=== PATIENT | female | born 1970 | race Hispanic/Latino ===

== ENCOUNTER 2018-10-14 08:13 | Emergency (ER) | payer OTHER ==
[2018-10-14 09:21] LABS: Urine Blood NEGATIVE (NEG); Urine Glucose NEGATIVE (NEG); Urine Protein 2+ (NEG); Urine Specific Gravity >1.030 (1.005-1.030); Urine pH 5.5 (5.0-7.0)
[2018-10-14 09:22] LABS: Protime INR 1.15
[2018-10-14 09:23] LABS: Absolute Monocytes 0.4 K/uL (0.1-1.3); Absolute Neutrophil 7.2 K/uL (1.8-8.0); Basophils % 0.7 % (0-1.3); Eosinophils % 2.1 % (0-4.4); Hematocrit 38.4 % (36.0-45.0); Lymphocytes % 20.5 % (15.3-44.8); MPV 7.4 fL (7.6-11.3); Monocytes % 4.3 % (3.3-12.3); RBC Red Blood Cell Count 4.76 M/uL (3.86-4.86)
[2018-10-14] MEDS ORDERED: ONDANSETRON 4 MG/2 ML VIAL ONE (09:34)
[2018-10-14] MEDS ORDERED: NA CHLORIDE 0.9% 1,000 ML ONE ×2 (09:34→14:23)
[2018-10-14] MEDS ORDERED: MORPHINE 4 MG/ML SYR ONE (09:34)
[2018-10-14 09:50] LABS: ALT/SGPT 37 U/L (12-78); AST/SGOT 22 U/L (15-37); Albumin 3.8 g/dL (3.4-5.0); Alkaline Phosphatase 84 U/L (45-117); BUN Blood Urea Nitrogen 12 mg/dL (7-18); Bicarbonate 27 mmol/L (21-32); Bilirubin Direct 0.1 mg/dL (0-0.2); Bilirubin Total 0.5 mg/dL (0.2-1.0); Glucose Level 128 mg/dL (74-106); Lipase 82 U/L (73-393); Magnesium 2.2 mg/dL (1.8-2.4); NT PRO-BNP 113 pg/mL (<125); Potassium 4.2 mmol/L (3.5-5.1); Protein, Total 8.1 g/dL (6.4-8.2); Sodium Level 137 mmol/L (136-145); Troponin (Emerg Dept Use Only) < 0.02 ng/mL (0.0-0.045)
--- NOTE | 2018-10-14 10:28 | RAD REPORT ---
EXAM DESCRIPTION: RAD - Chest Single View - 10/14/2018 10:02 am CLINICAL HISTORY: Cough COMPARISON: None. TECHNIQUE: AP portable chest image was obtained 0917 hours . FINDINGS: Lungs are clear. Heart and vasculature are normal. No measurable pleural effusion and no p neumothorax. No acute bony abnormality seen. No acute aortic findings suspected. IMPRESSION: No acute cardiopulmonary process.
[2018-10-14] MEDS ORDERED: HYDROMORPHONE HCL 0.5 MG/0.5 ML INJ ONE ×2 (10:44→14:55)
--- NOTE | 2018-10-14 10:45 | RAD REPORT ---
EXAM DESCRIPTION: CT - Head Brain Wo Cont - 10/14/2018 10:19 am CLINICAL HISTORY: Headache COMPARISON: None. TECHNIQUE: Computed axial tomography of the head was obtained. IV contrast was not requested. All CT scans are performed using dose optimization technique as appropriate and may include automated exposure control or mA/KV adjustment according to patient size. FINDINGS: An intracranial bleed is not seen . The ventricles are normal in caliber. No extra-axial fluid collection is noted. 17 millimeter left posterior scalp lesion near midline Fluid within the sinuses/ mastoids is not seen. Mild chronic ethmoid sinusitis is present IMPRESSION: No acute intracranial abnormality is seen. If patient's symptoms persist MRI of the bra in would be recommended. Mild chronic ethmoid sinusitis is present 17 millimeter left posterior scalp lesion. Follow-up recommended
--- NOTE | 2018-10-14 10:52 | RAD REPORT ---
EXAM DESCRIPTION: CTHead angio10/14/2018 10:20 am CLINICAL HISTORY: Syncope and headache COMPARISON: None TECHNIQUE: CT angiogram of the head was obtained. 3D MIPS reconstruction performed. All CT scans are performed using dose optimization technique as appropriate and may include automated exposure control or mA/KV adjustment according to patient size. FINDINGS: The basilar, internal carotid, anterior cerebral, middle cerebral and posterior cerebral a rteries are normal caliber. An aneurysm is not seen. Right A1 segment is hypoplastic which is a normal variant A significant stenosis is not noted. Coarse calcification is seen within the distal right vertebral a rtery IMPRESSION: No significant abnormalities displayed
[2018-10-14] MEDS ORDERED: CEFTRIAXONE/SWI 1gm 1 GM/10 ML SYR ONE ×2 (11:34→14:09)
[2018-10-14] MEDS ORDERED: KETOROLAC 30 MG/ML INJ ONE (11:34)
[2018-10-14] MEDS ORDERED: LIDOCAINE 1% MPF 5 ML VIAL ONE (11:47)
[2018-10-14 13:51] LABS: Appearance CLEAR (CLEAR); Body Fluid Source CSF; Color of fluid Colorless (COLORLESS)
[2018-10-14 13:52] LABS: Body Fluid WBC 984 /mm^3
[2018-10-14 13:56] LABS: Appearance CLEAR (CLEAR); Body Fluid Source CSF; Body Fluid WBC 1204 /mm^3; Color of fluid Colorless (COLORLESS)
--- NOTE | 2018-10-14 14:00 | ER ---
Nurse's Notes [facility] Name: Violette Matute Age: 47 yrs Sex: Female : 1970 Arrival Date: 10/14/2018 Time: 08:18 Bed 17 Private MD: out of town, doctor Diagnosis: Meningitis, unspecified;Headache Presentation: 10/14 08:44 Acuity: ROSELYN 3 sv 08:45 Presenting complaint: Patient states: headache that started yesterday at 0700, reports em nausea and photophobia, denies vomiting or dizziness, described as constant and throbbing. Transition of care: patient was not received from another setting of care. Onset of symptoms was October 13, 2018. Risk Assessment: Do you want to hurt yourself or someone else? Patient reports no desire to harm self or others. Initial Sepsis Screen: Does the patient meet any 2 criteria? No. Patient's initial sepsis screen is negative. Does the patient have a suspected source of infection? No. Patient's initial sepsis screen is negative. Care prior to arrival: None. 08:45 Method Of Arrival: Ambulatory em Triage Assessment: 08:48 Headache History: Denies prior headaches. General: Appears in no apparent distress. em uncomfortable, Behavior is calm, cooperative. Pain: Pain currently is 10 out of 10 on a pain scale. Pain began 1 day ago. Also complains of photophobia. Neuro: Level of Consciousness is awake, alert, obeys commands, Oriented to person, place, time, situation. Historical: - Allergies: 08:48 No Known Allergies; em - Home Meds: 08:48 metformin 500 mg Oral tab [Active]; losartan 50 mg oral tab [Active]; simvastatin 10 mg em Oral tab [Active]; - PMHx: 08:48 Hyperlipidemia; Hypertension; Diabetes - NIDDM; Asthma; em - PSHx: 08:48 Hernia repair; ; em - Immunization history:: Adult Immunizations up to date. - Social history:: Smoking status: Patient/guardian denies using tobacco. - Ebola Screening: : Patient negative for fever greater than or equal to 101.5 degrees Fahrenheit, and additional compatible Ebola Virus Disease symptoms Patient denies exposure to infectious person Patient denies travel to an Ebola-affected area in the 21 days before illness onset No symptoms or risks identified at this time. - Family history:: not pertinent. Screenin:44 Abuse screen: Denies threats or abuse. Nutritional screening: No deficits noted. em Tuberculosis screening: No symptoms or risk factors identified. Fall Risk None identified. Assessment: 08:48 General: Appears in no apparent distress. uncomfortable, Behavior is calm, cooperative, em Denies fever. Pain: Complains of pain in left advent and right advent and forehead Pain currently is 10 out of 10 on a pain scale. Pain began 1 day ago. Neuro: Level of Consciousness is awake, alert, obeys commands, Oriented to person, place, time, situation, [place] are equal bilaterally Moves all extremities. Gait is steady, Speech is normal, Facial symmetry appears normal, Reports headache photophobia neck stiffness . Denies weakness dizziness. Cardiovascular: Capillary refill < 3 seconds Patient's skin is warm and dry. Respiratory: Airway is patent Respiratory effort is even, unlabored, Respiratory pattern is regular, symmetrical. GI: Abdomen is obese, Reports nausea, Patient currently denies vomiting. Derm: Skin is intact, is healthy with good turgor, Skin is pink, warm \T\ dry. Musculoskeletal: Range of motion: intact in all extremities. 08:48 Reassessment: I agree with assessment completed by Suhail Louis LVN . aa5 10:10 Reassessment: Patient appears in no apparent distress at this time. Patient and/or em family updated on plan of care and expected duration. Pain level reassessed. Patient is alert, oriented x 3, equal unlabored respirations, skin warm/dry/pink. reports pain is 8/10. 10:35 Reassessment: Patient appears in no apparent distress at this time. Patient and/or em family updated on plan of care and expected duration. Pain level reassessed. Patient is alert, oriented x 3, equal unlabored respirations, skin warm/dry/pink. reports pain is 9/10, provider notified, new medication orders received. 11:10 Reassessment: Patient appears in no apparent distress at this time. Patient and/or em family updated on plan of care and expected duration. Pain level reassessed. Patient is alert, oriented x 3, equal unlabored respirations, skin warm/dry/pink. rates pain 5/10. 12:40 Reassessment: Patient appears in no apparent distress at this time. Patient and/or em family updated on plan of care and expected duration. Pain level reassessed. Patient is alert, oriented x 3, equal unlabored respirations, skin warm/dry/pink. rates pain 5/10 Patient states feeling better. 13:26 Reassessment: Patient appears in no apparent distress at this time. Patient and/or em family updated on plan of care and expected duration. Pain level reassessed. Patient is alert, oriented x 3, equal unlabored respirations, skin warm/dry/pink. pending CSF results. 14:30 Reassessment: Patient appears in no apparent distress at this time. Patient and/or em family updated on plan of care and expected duration. Pain level reassessed. Patient is alert, oriented x 3, equal unlabored respirations, skin warm/dry/pink. reports pain and low grade fever, provider notified, new medication orders received. 15:30 Reassessment: report called to FLACO Ash at [facility]. em 15:55 Reassessment: report given to EMS. em Vital Signs: 08:48 BP 154 / 92; Pulse 80; Resp 18; Temp 98.7(O); Pulse Ox 100% on R/A; Pain 10/10; em 10:00 BP 142 / 89; Pulse 72; Pulse Ox 99% on R/A; em 11:00 BP 133 / 76; Pulse 72; Resp 18; Pulse Ox 99% on R/A; Pain 5/10; em 12:00 BP 133 / 75; Pulse 66; Resp 18; Pulse Ox 99% on R/A; em 13:00 BP 118 / 70; Pulse 67; Resp 15; Pulse Ox 100% on R/A; Pain 5/10; em 14:40 Temp 99.8; ms 14:40 BP 130 / 64; Pulse 69; Resp 18; Pulse Ox 99% on R/A; Pain 5/10; em 15:30 BP 139 / 88; Pulse 69; Resp 18; Pulse Ox 99% on R/A; Pain 5/10; em ED Course: 08:18 Patient arrived in ED. mr 08:18 out of town, doctor is Private Physician. mr 08:22 Keo Hernandez MD is Attending Physician. armando 08:44 Patient has correct armband on for positive identification. Placed in gown. Bed in low em position. Call light in reach. Side rails up X2. Adult w/ patient. Pulse ox on. NIBP on. 08:45 Triage completed. sv 08:45 Suhail Louis LVN is Primary Nurse. em 08:48 Arm band placed on. em 09:07 Radiology exam delayed due to lab results not completed at this time. (BUN/Creatinine). vr 09:11 Initial lab(s) drawn, by me, sent to lab. Urine collected: clean catch specimen, clear. ms Inserted saline lock: 20 gauge in left antecubital area, using aseptic technique. Blood collected. 09:22 EKG done, by ED staff, reviewed by Keo Hernandez MD. at1 09:59 X-ray completed. Portable x-ray completed in exam room. Patient tolerated procedure sw well. 10:02 XRAY Chest (1 view) In Process Unspecified. EDMS 10:20 CT Head Brain wo Cont In Process Unspecified. EDMS 10:20 CT Head Angio In Process Unspecified. EDMS 12:35 Assist provider with lumbar puncture: Set up LP tray. Performed by Keo Hernandez MD em CSF is clear. Puncture site dressed with band aid, Procedure was successful. Patient tolerated well. 13:[address] Hernandez with Sylvia Hamlin at the [facility] transfer eb center. 14:[address] Ocampo the neurologist fraud prevention analyst at [facility] with Dr. Hernandez for eb patient transfer consultation. 14:43 administrative approval given by Sylvia Hamlin RN/ pt latrice to [address] [place] [address] bed 15/ Dr. lionel Nguyen has accepted the patient in transfer/ report to be called to [phone]. 16:11 Patient transferred, IV remains in place. em Administered Medications: 09:40 Drug: NS 0.9% 1000 ml Route: IV; Rate: 125 ml/hr; Site: left antecubital; aa5 16:14 Follow up: IV Status: Infusion continued upon transfer; IV Intake: 200ml em 09:40 Drug: morphine 4 mg Route: IVP; Site: left antecubital; aa5 10:20 Follow up: Response: No adverse reaction; Pain is decreased em 09:40 Drug: Zofran 4 mg Route: IVP; Site: left antecubital; aa5 10:21 Follow up: Response: No adverse reaction em 10:40 Drug: Dilaudid 0.5 mg Route: IVP; Site: left antecubital; aa5 11:10 Follow up: Response: No adverse reaction; Pain is decreased em 11:40 Drug: Rocephin - (cefTRIAXone) 1 grams Route: IVPB; Infused Over: 30 mins; Site: left aa5 antecubital; 12:03 Follow up: Response: No adverse reaction; IV Status: Completed infusion; IV Intake: 10mlem 11:40 Drug: TORadol 30 mg Route: IVP; Site: left antecubital; aa5 12:40 Follow up: Response: No adverse reaction; Pain is unchanged, physician notified em 12:50 Drug: NS 0.9% 1000 ml Route: IV; Rate: 1 bolus; Site: left antecubital; em 14:23 Follow up: IV Status: Completed infusion; IV Intake: 1000ml em 14:40 Drug: Rocephin - (cefTRIAXone) 1 grams Route: IVPB; Infused Over: 30 mins; Site: left aa5 antecubital; 15:30 Follow up: Response: No adverse reaction; IV Status: Completed infusion; IV Intake: 10mlem 14:49 Drug: Tylenol 1000 mg Route: PO; em 16:08 Follow up: Response: No adverse reaction em 14:50 Drug: Dilaudid 0.5 mg Route: IVP; Site: left antecubital; em 16:07 Follow up: Response: No adverse reaction em 14:55 Drug: vancoMYCIN 1 grams Route: IVPB; Infused Over: 2 hrs; Site: left antecubital; em 16:07 Follow up: Response: No adverse reaction; IV Status: Infusion continued upon transfer; em IV Intake: 50ml Intake: 12:03 IV: 10ml; Total: 10ml. em 14:23 IV: 1000ml; Total: 1010ml. em 15:30 IV: 10ml; Total: 1020ml. em 16:07 IV: 50ml; Total: 1070ml. em 16:14 IV: 200ml; Total: 1270ml. em Outcome: 13:59 ER care complete, transfer ordered by . [facility] 16:12 Transferred by [facility] to [facility], Transfer form completed. em X-rays sent w/ patient. 16:12 Condition: good 16:12 Instructed on the need for transfer, Demonstrated understanding of instructions. 16:14 Patient left the ED. em Signatures: Dispatcher [employer] Brigitte Kearns, Keo Block RN, MD MD cha Rivera, Nia mr Louis, Suhail, FIREWORKS ASSEMBLY SUPERVISOR FIREWORKS ASSEMBLY SUPERVISOR em Kranthi, Eliza ms Maikol, Hortencia, FLACO SAM aa5 Felecia Arechiga Amanda, operations specialist EKG Tat1 Becky Levy Elizabeth eb Corrections: (The following items were deleted from the chart) 16:04 08:48 Neuro: Level of Consciousness is awake, alert, obeys commands, Oriented to em person, place, time, situation, [place] are equal bilaterally Moves all extremities. Gait is steady, Speech is normal, Facial symmetry appears normal, Reports headache photophobia Denies weakness dizziness, em
--- NOTE | 2018-10-14 14:01 | EDPHYS ---
Physician Documentation [facility] Name: Violette Matute Age: 47 yrs Sex: Female : 1970 Arrival Date: 10/14/2018 Time: 08:18 Bed 17 Private MD: out of town, doctor ED Physician Keo Hernandez HPI: 10/14 08:58 This 47 yrs old Female presents to ER via Ambulatory with complaints of armando Headache. 08:58 The patient complains of pain to the forehead, right rastafari and left rastafari. The armando patient describes the headache as a pressure. Onset: The symptoms/episode began/occurred 24 hour(s) ago. Associated signs and symptoms: The patient has no apparent associated signs or symptoms. Severity of symptoms: At its worst the pain was moderate. Headache History: Denies prior headaches. The patient has not experienced similar symptoms in the past. Historical: - Allergies: 08:48 No Known Allergies; em - Home Meds: 08:48 metformin 500 mg Oral tab [Active]; losartan 50 mg oral tab [Active]; simvastatin 10 mg em Oral tab [Active]; - PMHx: 08:48 Hyperlipidemia; Hypertension; Diabetes - NIDDM; Asthma; em - PSHx: 08:48 Hernia repair; ; em - Immunization history:: Adult Immunizations up to date. - Social history:: Smoking status: Patient/guardian denies using tobacco. - Ebola Screening: : Patient negative for fever greater than or equal to 101.5 degrees Fahrenheit, and additional compatible Ebola Virus Disease symptoms Patient denies exposure to infectious person Patient denies travel to an Ebola-affected area in the 21 days before illness onset No symptoms or risks identified at this time. - Family history:: not pertinent. ROS: 08:58 Constitutional: Negative for fever, chills, and weight loss, Eyes: Negative for injury, armando pain, redness, and discharge, ENT: Negative for injury, pain, and discharge, Neck: Negative for injury, pain, and swelling, Cardiovascular: Negative for chest pain, palpitations, and edema, Respiratory: Negative for shortness of breath, cough, wheezing, and pleuritic chest pain, Abdomen/GI: Negative for abdominal pain, nausea, vomiting, diarrhea, and constipation, Back: Negative for injury and pain, : Negative for injury, bleeding, discharge, and swelling, MS/Extremity: Negative for injury and deformity, Skin: Negative for injury, rash, and discoloration, Psych: Negative for depression, anxiety, suicide ideation, homicidal ideation, and hallucinations, Allergy/Immunology: Negative for hives, rash, and allergies, Endocrine: Negative for neck swelling, polydipsia, polyuria, polyphagia, and marked weight changes, Hematologic/Lymphatic: Negative for swollen nodes, abnormal bleeding, and unusual bruising. 08:58 Neuro: Positive for headache. Exam: 08:58 Constitutional: This is a well developed, well nourished patient who is awake, alert, armando and in no acute distress. Head/Face: Normocephalic, atraumatic. Eyes: Pupils equal round and reactive to light, extra-ocular motions intact. Lids and lashes normal. Conjunctiva and sclera are non-icteric and not injected. Cornea within normal limits. Periorbital areas with no swelling, redness, or edema. ENT: Nares patent. No nasal discharge, no septal abnormalities noted. Tympanic membranes are normal and external auditory canals are clear. Oropharynx with no redness, swelling, or masses, exudates, or evidence of obstruction, uvula midline. Mucous membranes moist. Neck: Trachea midline, no thyromegaly or masses palpated, and no cervical lymphadenopathy. Supple, full range of motion without nuchal rigidity, or vertebral point tenderness. No Meningismus. Chest/axilla: Normal chest wall appearance and motion. Nontender with no deformity. No lesions are appreciated. Cardiovascular: Regular rate and rhythm with a normal S1 and S2. No gallops, murmurs, or rubs. Normal PMI, no JVD. No pulse deficits. Respiratory: Lungs have equal breath sounds bilaterally, clear to auscultation and percussion. No rales, rhonchi or wheezes noted. No increased work of breathing, no retractions or nasal flaring. Abdomen/GI: Soft, non-tender, with normal bowel sounds. No distension or tympany. No guarding or rebound. No evidence of tenderness throughout. Back: No spinal tenderness. No costovertebral tenderness. Full range of motion. Female : Normal external genitalia. Skin: Warm, dry with normal turgor. Normal color with no rashes, no lesions, and no evidence of cellulitis. MS/ Extremity: Pulses equal, no cyanosis. Neurovascular intact. Full, normal range of motion. Psych: Awake, alert, with orientation to person, place and time. Behavior, mood, and affect are within normal limits. 08:58 Neuro: Orientation: is normal, appropriate for stated age, no acute changes, Mentation: is normal, appropriate for stated age, no acute changes, Memory: is normal, appropriate for stated age, no acute changes, Cranial nerves: grossly normal, is grossly normal based on the patient's age, no acute changes, Cerebellar function: is grossly normal, is grossly normal based on the patient's age, no acute changes, Gait: not applicable Vital Signs: 08:48 BP 154 / 92; Pulse 80; Resp 18; Temp 98.7(O); Pulse Ox 100% on R/A; Pain 10/10; em 10:00 BP 142 / 89; Pulse 72; Pulse Ox 99% on R/A; em 11:00 BP 133 / 76; Pulse 72; Resp 18; Pulse Ox 99% on R/A; Pain 5/10; em 12:00 BP 133 / 75; Pulse 66; Resp 18; Pulse Ox 99% on R/A; em 13:00 BP 118 / 70; Pulse 67; Resp 15; Pulse Ox 100% on R/A; Pain 5/10; em 14:40 Temp 99.8; ms 14:40 BP 130 / 64; Pulse 69; Resp 18; Pulse Ox 99% on R/A; Pain 5/10; em 15:30 BP 139 / 88; Pulse 69; Resp 18; Pulse Ox 99% on R/A; Pain 5/10; em MDM: 08:23 Patient medically screened. [facility] 09:19 Data reviewed: vital signs, nurses notes, lab test result(s), EKG, radiologic studies, [facility] CT scan, plain films. 10/14 08:37 Order name: Urine Dipstick--Ancillary (enter results); Complete Time: 10:10 10/14 08:37 Order name: Urine --Ancillary (enter results); Complete Time: 10:10 10/14 08:56 Order name: Basic Metabolic Panel; Complete Time: 10:10 [facility] 10/14 08:56 Order name: CBC with Diff; Complete Time: 10:10 [facility] 10/14 08:56 Order name: LFT's; Complete Time: 10:10 [facility] 10/14 08:56 Order name: Magnesium; Complete Time: 10:10 [facility] 10/14 08:56 Order name: NT PRO-BNP; Complete Time: 10:10 [facility] 10/14 08:56 Order name: PT-INR; Complete Time: 10:10 [facility] 10/14 08:56 Order name: Troponin (emerg Dept Use Only); Complete Time: 10:10 [facility] 10/14 08:56 Order name: Lipase; Complete Time: 10:10 [facility] 10/14 08:56 Order name: Urine Culture [facility] 10/14 13:13 Order name: Spinal Fluid Profile; Complete Time: 14:21 [facility] 10/14 13:28 Order name: Body Fluid Cell Count; Complete Time: 14:21 [facility] 10/14 13:28 Order name: CSF Culture [facility] 10/14 08:56 Order name: XRAY Chest (1 view); Complete Time: 11:06 [facility] 10/14 08:56 Order name: EKG; Complete Time: 08:57 [facility] 10/14 08:56 Order name: CT Head Brain wo Cont; Complete Time: 11:06 [facility] 10/14 08:56 Order name: CT Head Angio; Complete Time: 11:06 [facility] 10/14 13:28 Order name: CSF Bacterial Antigens (Tube 1 [facility] 10/14 08:56 Order name: Cardiac monitoring; Complete Time: 09:11 [facility] 10/14 08:56 Order name: EKG - Nurse/Tech; Complete Time: 09:11 [facility] 10/14 08:56 Order name: IV Saline Lock; Complete Time: 09:11 [facility] 10/14 08:56 Order name: Labs collected and sent; Complete Time: 09:11 [facility] 10/14 08:56 Order name: O2 Per Protocol; Complete Time: 09:11 [facility] 10/14 08:56 Order name: O2 Sat Monitoring; Complete Time: 09:11 [facility] 10/14 08:56 Order name: Urine Dipstick-Ancillary (obtain specimen); Complete Time: 09:11 [facility] Administered Medications: 09:40 Drug: NS 0.9% 1000 ml Route: IV; Rate: 125 ml/hr; Site: left antecubital; aa5 16:14 Follow up: IV Status: Infusion continued upon transfer; IV Intake: 200ml em 09:40 Drug: morphine 4 mg Route: IVP; Site: left antecubital; aa5 10:20 Follow up: Response: No adverse reaction; Pain is decreased em 09:40 Drug: Zofran 4 mg Route: IVP; Site: left antecubital; aa5 10:21 Follow up: Response: No adverse reaction em 10:40 Drug: Dilaudid 0.5 mg Route: IVP; Site: left antecubital; aa5 11:10 Follow up: Response: No adverse reaction; Pain is decreased em 11:40 Drug: Rocephin - (cefTRIAXone) 1 grams Route: IVPB; Infused Over: 30 mins; Site: left aa5 antecubital; 12:03 Follow up: Response: No adverse reaction; IV Status: Completed infusion; IV Intake: 10mlem 11:40 Drug: TORadol 30 mg Route: IVP; Site: left antecubital; aa5 12:40 Follow up: Response: No adverse reaction; Pain is unchanged, physician notified em 12:50 Drug: NS 0.9% 1000 ml Route: IV; Rate: 1 bolus; Site: left antecubital; em 14:23 Follow up: IV Status: Completed infusion; IV Intake: 1000ml em 14:40 Drug: Rocephin - (cefTRIAXone) 1 grams Route: IVPB; Infused Over: 30 mins; Site: left aa5 antecubital; 15:30 Follow up: Response: No adverse reaction; IV Status: Completed infusion; IV Intake: 10mlem 14:49 Drug: Tylenol 1000 mg Route: PO; em 16:08 Follow up: Response: No adverse reaction em 14:50 Drug: Dilaudid 0.5 mg Route: IVP; Site: left antecubital; em 16:07 Follow up: Response: No adverse reaction em 14:55 Drug: vancoMYCIN 1 grams Route: IVPB; Infused Over: 2 hrs; Site: left antecubital; em 16:07 Follow up: Response: No adverse reaction; IV Status: Infusion continued upon transfer; em IV Intake: 50ml Disposition: 10/14/18 13:[address] [facility]. Diagnosis are Meningitis, unspecified, Headache. - Reason for transfer: Higher level of care. - Accepting physician is to [facility]. - Condition is Stable. - Problem is new. - Symptoms have improved. Signatures: Dispatcher [employer] EDKeo Nelson MD MD armando Louis, Suhail, DOOR FRAMER DOOR FRAMER Hortencia Batres, RN RN aa5 Corrections: (The following items were deleted from the chart) 16:14 13:59 10/14/2018 13:[address] [facility]. Diagnosis is em Meningitis, unspecified; Headache. Reason for transfer: Higher level of care. Accepting physician is to [facility]. Condition is Stable. Problem is new. Symptoms have improved. armando
[2018-10-14 14:06] LABS: CSF Glucose 59 mg/dL (40-70)
[2018-10-14] MEDS ORDERED: ACETAMINOPHEN 500 MG TAB ONE (14:55)
[2018-10-14] MEDS ORDERED: VANCOMYCIN/NS 1 gm 1 GM/250 ML BAG IV SCH (15:00)
--- NOTE | 2018-10-15 09:26 | EKG ---
Test Date: 2018-10-14 Test Time: 09:11:54 [employer] Driver: GABBY MEASUREMENT RESULTS: Intervals: Rate: 77 [place]: 172 QRSD: 82 QT: 374 QTc: 423 [place]: P: 48 [place]: 172 QRS: 44 T: 58 INTERPRETIVE STATEMENTS: Normal sinus rhythm Low voltage QRS Borderline ECG No previous ECG available for comparison Electronically Signed On 10-15-18 09:22:09 CDT by Luciano Ordaz
== END 2018-10-14 16:14 | disposition short-term general hospital (02) ==
LOC: ER 08:13
DX: G03.9 Meningitis, unspecified (principal); I10 Essential (primary) hypertension; E11.9 Type 2 diabetes mellitus without complications; E78.5 Hyperlipidemia, unspecified
CPT/HCPCS: 36415; 62270; 70450; 70496; 71045; 80048; 80076; 81003; 81025; 82945; 83690; 83735; 83880; 84157; 84484; 85025; 85610; 86403; 87070; 87086; 87088; 89050; 93005; 96361; 96365; 96375; 99285; J0696; J1170; J2405; J3370; J7030; Q9967